=== PATIENT | female | born 1975 | race African-American/Black ===

== ENCOUNTER 2018-04-06 22:27 | Emergency (ER) | payer OTHER ==
[~2018-04-06] VITALS: Ht 160 cm; Wt 66.7 kg
[2018-04-06] MEDS ORDERED: IBUPROFEN600 MG ORAL (23:13)
[2018-04-06] MEDS ORDERED: ZITHROMAX250 MG ORAL (23:13)
--- NOTE | 2018-04-06 23:20 | Emergency Room Report ---
History of Present Illness General Chief Complaint: Earache Source: Patient Present Illness HPI Patient 42-year-old female presented after increased right-sided earache. Patient reports having prior history of tonsillitis which is recurrent. Patient reports having increased sore throat. She reports having finished a course of antibiotics. Patient was the noted to have a recent dental infection. She denies any fever. The patient denies any hearing loss or nausea vomiting.Patient denies any chest discomfort. She reports having prior history of arthritis. She states penicillin allergic. Allergies: Uncoded Allergies: PENNICILLIN (Allergy, Unknown, 04/06/18) Patient History Past Medical History: see triage record Last Menstrual Period: 2 weeks ago Now: No Reviewed Nursing Documentation: PMH: Agreed; PSxH: Agreed Nursing Documentation-PMH Hx Neurological Problems: Yes - embolization of the fibroid Review of Systems All Other Systems: negative except mentioned in HPI Physical Exam Vital Signs Date Time Temp Pulse Resp B/P (MAP) Pulse Ox O2 Delivery O2 Flow Rate FiO2 04/06/18 22:40 98.2 78 16 128/67 100 Room Air General Appearance: well appearing, no apparent distress, alert, GCS 15, non- toxic Head: normocephalic, atraumatic ENT: hearing grossly normal, normal voice, tonsillar swelling, tonsillar exudate Neck: full range of motion, supple Respiratory: normal inspection, no respiratory distress, speaking full sentences Cardiovascular #1: normal inspection Gastrointestinal: normal inspection Neurologic: normal inspection, alert, oriented x3, responsive, oil well logging engineer III-XII nml as tested, normal gait Psychiatric: mood/affect normal Skin: normal inspection, no rash Medical Decision Making Diagnostic Impression: Primary Impression: Tonsillitis ER Course Patient presented for ear pain. Differential diagnosis included was not limited to otitis media, malignant otitis externa, foreign body, cellulitis, mastoiditis, carotid dissection, myocardial infarction among others. The patient appears to have a right-sided tonsillitis. The patient was given prescription for ibuprofen as well as azithromycin. The patient is advised to follow-up with her primary care physician for recheck of neck discomfort and further imaging. Last Vital Signs Date Time Temp Pulse Resp B/P (MAP) Pulse Ox O2 Delivery O2 Flow Rate FiO2 04/06/18 22:40 98.2 78 16 128/67 100 Room Air Status: improved Disposition: HOME, SELF-CARE Condition: Stable Scripts Ibuprofen* (MOTRIN*) 600 Mg Tablet 600 MG ORAL Q8H PRN for For Pain, #30 TAB 0 Refills Prov: Reno Canseco MD 04/06/18 Azithromycin* (ZITHROMAX*) 250 Mg Tablet 250 MG ORAL DAILY, #6 TAB 0 Refills Take two tables once daily for 1 day, then one tablet once daily for 4 days. Prov: Reno Canseco MD 04/06/18 Patient Instructions: Tonsillitis Reno Canseco MD Apr 06, 2018 23:20
[2018-04-06 23:33] VITALS: BP 128/67
== END 2018-04-06 23:18 | disposition home or self-care (01) ==
LOC: EMR 23:02
DX: J03.90 Acute tonsillitis, unspecified (principal); Z88.0 Allergy status to penicillin
CPT/HCPCS: 99283

== ENCOUNTER 2018-05-24 18:55 | Emergency (ER) | payer OTHER ==
[~2018-05-24] VITALS: Ht 157.5 cm; Wt 64.9 kg
[~2018-05-24 18:55] MED LIST: IBUPROFEN600 MG ORAL; ZITHROMAX250 MG ORAL
--- NOTE | 2018-05-24 19:38 | NUR ---
ED Nurse Note: pt walked into ed c/o possible infection, pt states she had tooth infection since a year ago and has been off and on and had sinusitis and tonsilitis a month ago and noticed swelling around collarbone for two days. Pt reports she doesn't have any pain but wanted to r/o infection, denies fever but c/o fatigue. PT AA&ox4, gcs=15, skin warm and dry, resp even and unlabored, -n/v/d, ambulates w/ steady gait. Will cont monitor.
[2018-05-24 19:41] VITALS: BP 115/75
--- NOTE | 2018-05-24 20:56 | Emergency Room Report ---
History of Present Illness General Chief Complaint: Neck Pain Source: Patient Present Illness HPI 42 YO Female presents to the ED c/o swelling and tightness in the left side of her neck since yesterday. pt. states she also has been severely dehydrated and fatigued. Pt. recently had dental work done on left molar and is wondering if this could be some sort of infection. pt. denies fevers, chills, or tenderness/ pain to the molar or jaw area where dental work was done. Pt denies trauma or fall. Pt. finished course of amoxicillin. She reports she did sleep weird the night prior. pt denies significant pmhx other than fibroids with prolonged bleeding causing mild anemia. She reports some urinary frequency but denies dysuria, hematuria or urgency. Denies CP, Palpitations, LOC, AMS, dizziness, Changes in Vision, Sensation, paresthesias, or a sudden severe headache. Allergies: Uncoded Allergies: PENNICILLIN (Allergy, Unknown, 04/06/18) Patient History Past Medical History: see triage record Past Surgical History: none Pertinent Family History: none Last Menstrual Period: 05/22/18 Now: No Reviewed Nursing Documentation: PMH: Agreed; PSxH: Agreed Nursing Documentation-PMH Past Medical History: No History, Except For Hx Neurological Problems: Yes - embolization of the fibroid Review of Systems All Other Systems: negative except mentioned in HPI Physical Exam Vital Signs Date Time Temp Pulse Resp B/P (MAP) Pulse Ox O2 Delivery O2 Flow Rate FiO2 05/24/18 19:01 98.2 85 20 115/75 98 Room Air Sp02 EP Interpretation: reviewed, normal General Appearance: no apparent distress, alert, GCS 15, non-toxic Head: normocephalic, atraumatic Eyes: bilateral eye normal inspection, bilateral eye PERRL ENT: hearing grossly normal, normal voice, uvula midline, moist mucus membranes Neck: full range of motion, tender lateral - left Respiratory: chest non-tender, lungs clear, normal breath sounds, speaking full sentences Cardiovascular #1: regular rate, rhythm, normal capillary refill Gastrointestinal: normal bowel sounds, non tender, soft Genitourinary: normal inspection, no CVA tenderness Musculoskeletal: back normal, gait/station normal, normal range of motion, tender - left trapezius ttp, Neurologic: alert, oriented x3, responsive, motor strength/tone normal, sensory intact, speech normal, grossly normal Psychiatric: judgement/insight normal Skin: normal color, no rash, warm/dry, well hydrated Medical Decision Making PA Attestation Dr. Cruz is my supervising Physician whom patient management has been discussed with. Diagnostic Impression: Primary Impression: Neck muscle strain Qualified Codes: S16.1XXA - Strain of muscle, fascia and tendon at neck level , initial encounter ER Course 42 YO Female presents to the ED c/o swelling and tightness in the left side of her neck since yesterday. pt. states she also has been severely dehydrated and fatigued. Pt. recently had dental work done on left molar and is wondering if this could be some sort of infection. pt. denies fevers, chills, or tenderness/ pain to the molar or jaw area where dental work was done. Pt denies trauma or fall. Pt. finished course of amoxicillin. She reports she did sleep weird the night prior. pt denies significant pmhx other than fibroids with prolonged bleeding causing mild anemia. She reports some urinary frequency but denies dysuria, hematuria or urgency. Denies CP, Palpitations, LOC, AMS, dizziness, Changes in Vision, Sensation, paresthesias, or a sudden severe headache. Ddx considered but are not limited to Infection, neck muscle spasm/strain, goiter, UTI, anemia, electrolyte imbalance just to name a few. Vital signs: are WNL, pt. is afebrile H&PE are most consistent with neck muscle strain- no LAD, ttp primarily left trapezius. will r/o UTI ORDERS: -CBC, CMP, UA: unremarkable, electrolytes ok, no evidence of infeciton. ED INTERVENTIONS: -Robaxin PO -1 liter NS IV DISCHARGE: At this time pt. is stable for d/c to home. Will provide printed patient care instructions, and any necessary prescriptions. Care plan and follow up instructions have been discussed with the patient prior to discharge. Last Vital Signs Date Time Temp Pulse Resp B/P (MAP) Pulse Ox O2 Delivery O2 Flow Rate FiO2 05/24/18 19:41 98.2 87 16 115/75 100 Room Air Disposition: HOME, SELF-CARE Condition: Stable Scripts Naproxen* (NAPROXEN*) 500 Mg Tablet 500 MG ORAL TWICE A DAY for 5 Days, #10 TAB Prov: Mildred Arambula 05/24/18 Methocarbamol* (ROBAXIN-750*) 750 Mg Tablet 750 MG PO QID, #28 TAB 0 Refills Prov: Mildred Arambula 05/24/18 Referrals: [facility],REFERRING (PCP) Patient Instructions: Muscle Strain, [id number] Additional Instructions: Take medications as directed. Follow up with a Primary Care Provider in 3-5 days, even if your symptoms have resolved. --Please review list of primary care clinics, if you do not already have a primary care provider Return sooner to ED if new symptoms occur, or current symptoms become worse. Do not drink alcohol, drive, or operate heavy machinery while taking Robaxin ( Muscle Relaxers) as this may cause drowsiness. - Please note that this Emergency Department Report was dictated using [employer] server on call technology software, occasionally this can lead to erroneous entry secondary to interpretation by the dictation equipment. Mildred Arambula May 24, 2018 20:56
[2018-05-24 21:11] LABS: APPEARANCE,URINE CLEAR; BILIRUBIN, URINE NEGATIVE (NEGATIVE); COLOR,URINE PALE YELLOW; GLUCOSE, URINE (UA) NEGATIVE (NEGATIVE); KETONES,URINE NEGATIVE (NEGATIVE); LEUKOCYTE ESTERASE ,URINE NEGATIVE (NEGATIVE); NITRITE,URINE NEGATIVE (NEGATIVE); PH,URINE 8 (4.5-8.0); PROTEIN,URINE NEGATIVE (NEGATIVE); UROBILINOGEN,URINE NORMAL MG/DL (0.0-1.0)
[2018-05-24 21:16] LABS: EOSINOPHILS % (AUTO) 1.4 % (0.0-3.0); HEMATOCRIT 42.3 % (37.0-47.0); HEMOGLOBIN 13.8 G/DL (12.0-16.0); LYMPHOCYTES % (AUTO) 43.4 % (20.0-45.0); MEAN CORPUSCULAR VOLUME 87 FL (80-99); MONOCYTES % (AUTO) 10.3 % (1.0-10.0); PLATELET COUNT 255 K/UL (150-450); RED BLOOD COUNT 4.86 M/UL (4.20-5.40); WHITE BLOOD COUNT 5.5 K/UL (4.8-10.8)
[2018-05-24 21:29] LABS: ANION GAP 8 mmol/L (5-15); BLOOD UREA NITROGEN 16 mg/dL (7-18); CARBON DIOXIDE 28 MMOL/L (21-32); CHLORIDE 102 MMOL/L (98-107); CREATININE 1.2 MG/DL (0.55-1.30); POTASSIUM 3.7 MMOL/L (3.5-5.1); SODIUM 138 MMOL/L (136-145)
[2018-05-24 21:34] LABS: ALANINE AMINOTRANSFERASE 27 U/L (12-78); ALKALINE PHOSPHATASE 66 U/L (46-116); ASPARTATE AMINO TRANSFERASE 16 U/L (15-37); BILIRUBIN,TOTAL 0.3 MG/DL (0.2-1.0)
[2018-05-24] MEDS ORDERED: ROBAXIN-750750 MG PO (21:53)
[2018-05-24] MEDS ORDERED: NAPROXEN500 M2 ORAL (21:53)
[2018-05-24] MEDS ORDERED: Methocarbamol 750mg tab ORAL ONE (22:00)
[2018-05-24 22:10] VITALS: BP 119/78
--- NOTE | 2018-05-24 22:11 | NUR ---
ED Nurse Note: Pt discharge instruction provided w/ prescription, id band removed, pt education done via discussion and handout, pt verbalized understanding and agrees with plan, pt advised to follow up with pcp regarding pt's condition, pt advised to return to ed if s/s worsen or new s/s develop.
== END 2018-05-24 22:11 | disposition home or self-care (01) ==
LOC: EMR 19:15
DX: S16.1XXA Strain of muscle, fascia and tendon at neck level, initial encounter (principal); X58.XXXA Exposure to other specified factors, initial encounter; Y92.9 Unspecified place or not applicable; Z88.0 Allergy status to penicillin
CPT/HCPCS: 36415; 80053; 81003; 85025; 99283

== ENCOUNTER 2019-03-16 13:54 | Emergency (ER) | payer OTHER ==
[~2019-03-16] VITALS: Ht 162.6 cm; Wt 70.8 kg
[~2019-03-16 13:54] MED LIST changes: +NAPROXEN500 M2 ORAL; +ROBAXIN-750750 MG PO
[2019-03-16 13:59] VITALS: BP 108/66
--- NOTE | 2019-03-16 14:11 | Emergency Room Report ---
History of Present Illness General Chief Complaint: Pain Source: Patient (Jordi Altman MD) Present Illness HPI 43-year-old female initially to be evaluated at 2:10 PM, patient states he she has to use her cell phone and mixing picker tender a call Will reevaluate patient and obtain a history when she is available. (Jordi Altman MD) HPI 43-year-old female with history of uterine fibroids cholecystitis embolization the right side, and frequent UTI here complaining of 2-1/2 weeks of left sided flank pain without any radiation to the pubic area. Patient denies fever and chills, nausea vomiting. Reports that has been having intermittent shooting pain at the site of her embolization which occurred June 2017 and the pain has been going on for the past 2 months. Patient has an upcoming visit with cottonseed meat presser and also pending ultrasound to be done tomorrow. Denies hematuria , dysuria urinary frequency. Reports the last time that she had a urinary tract infection she ended on the hospital. Also reports that has been seen by an ear nose throat doctor and has been dealing with postnasal dripping and tonsillitis which has already been taking care of. Denies chest pain, shortness of breath, palpitation, and other associated symptoms. Has not taken any medication for symptom relief (Joe Keller) Allergies: Uncoded Allergies: PENNICILLIN (Allergy, Unknown, 04/06/18) Patient History Past Medical History: see triage record Last Menstrual Period: 03/01/2019 Now: No Reviewed Nursing Documentation: PMH: Agreed; PSxH: Agreed (Jordi Altman MD) Past Medical History: see triage record Past Surgical History: unable to obtain Pertinent Family History: none Now: No Immunizations: UTD Reviewed Nursing Documentation: PMH: Agreed; PSxH: Agreed (Joe Keller) Nursing Documentation-PMH Past Medical History: No History, Except For Hx Neurological Problems: Yes - embolization of the fibroid (Jordi Altman MD) Review of Systems All Other Systems: negative except mentioned in HPI (Jordi Altman MD) All Other Systems: negative except mentioned in HPI (Joe Keller) Physical Exam Vital Signs Date Time Temp Pulse Resp B/P (MAP) Pulse Ox O2 Delivery O2 Flow Rate FiO2 03/16/19 13:59 98.2 82 16 108/66 (80) 100 Room Air Sp02 EP Interpretation: reviewed, normal General Appearance: well appearing, no apparent distress, alert Head: normocephalic, atraumatic Eyes: bilateral eye PERRL, bilateral eye EOMI ENT: uvula midline, moist mucus membranes Neck: supple, thyroid normal, supple/symm/no masses Respiratory: lungs clear, no respiratory distress, no retraction, no accessory muscle use Cardiovascular #1: normal peripheral pulses, regular rate, rhythm, no edema, no gallop, no murmur Gastrointestinal: non tender, soft, no guarding, no rebound Musculoskeletal: normal inspection Neurologic: alert, oriented x3 Psychiatric: mood/affect normal Skin: no rash, warm/dry (Jordi Altman MD) Sp02 EP Interpretation: reviewed, normal General Appearance: no apparent distress, alert, GCS 15, non-toxic Head: normocephalic, atraumatic Eyes: bilateral eye normal inspection, bilateral eye PERRL ENT: hearing grossly normal, normal pharynx, no angioedema, normal voice Neck: full range of motion, supple/symm/no masses Respiratory: normal inspection, chest non-tender, lungs clear, normal breath sounds, no rhonchi, no respiratory distress, no wheezing Cardiovascular #1: regular rate, rhythm, no edema, no murmur Gastrointestinal: normal bowel sounds, non tender, soft, non-distended, no guarding, no rebound Genitourinary: normal inspection, no CVA tenderness Musculoskeletal: back normal, digits/nails normal, gait/station normal, normal range of motion, non-tender Neurologic: alert, oriented x3, responsive, motor strength/tone normal, sensory intact, speech normal Psychiatric: judgement/insight normal, memory normal, mood/affect normal, no suicidal/homicidal ideation Skin: no rash Lymphatic: no adenopathy (Joe Keller) Medical Decision Making PA Attestation Diagnosis and treatment plans were reviewed and discussed with my supervising physician Dr. Altman (Joe Keller) Diagnostic Impression: Primary Impression: Low back strain ER Course 43-year-old female with history of uterine fibroids cholecystitis embolization the right side, and frequent UTI here complaining of 2-1/2 weeks of left sided flank pain without any radiation to the pubic area. Patient denies fever and chills, nausea vomiting. Reports that has been having intermittent shooting pain at the site of her embolization which occurred June 2017 and the pain has been going on for the past 2 months. Patient has an upcoming visit with cottonseed meat presser and also pending ultrasound to be done tomorrow. Denies hematuria , dysuria urinary frequency. Reports the last time that she had a urinary tract infection she ended on the hospital. Also reports that has been seen by an ear nose throat doctor and has been dealing with postnasal dripping and tonsillitis which has already been taking care of. Denies chest pain, shortness of breath, palpitation, and other associated symptoms. Has not taken any medication for symptom relief Ddx considered but are not limited to: Lumbar spine sprain, strain, fracture, contusion, neuropathy, renal stone, pyelonephritis, adhesions post embolization Vital signs: are WNL, pt. is afebrile H&PE are most consistent with: Lumbar spine strain ORDERS: no Lumbar spine x-ray since there was no fall/injury, CBC, CMP, UA, urine test, lidocaine patch, Tylenol ER intervention: none DISCHARGE: At this time pt. is stable for d/c to home. Will provide printed patient care instructions, and any necessary prescriptions. Care plan and follow up instructions have been discussed with the patient prior to discharge. Patient later discloses that she has had pruritus secondary to dye injection in the past. I explained to her the CT scan without IV contrast is not going to be as accurate since the patient is getting an ultrasound done tomorrow patient to have ultrasound done and follow-up with your primary care provider. At this time no further emergent action is needed as patient is stable with stable vital signs and no signs of urinary tract infection noted. The trace of blood stone versus start of patient's menses. Patient agrees with the above treatment (Joe Keller) Last Vital Signs Date Time Temp Pulse Resp B/P (MAP) Pulse Ox O2 Delivery O2 Flow Rate FiO2 03/16/19 13:59 98.2 82 16 108/66 (80) 100 Room Air (Jordi Altman MD) Disposition: HOME, SELF-CARE Condition: Stable Scripts Acetaminophen* (ACETAMINOPHEN 325MG TABLET*) 325 Mg Tablet 650 MG ORAL Q6H PRN for For Pain, #30 TAB Prov: Joe Keller 03/16/19 Lidocaine Patch* (Lidoderm Patch*) 1 Each Adh..patch 1 PATCH TOPIC DAILY, #7 PATCH 0 Refills Patch(es) may remain in place for up to 12 hours in any 24-hour period. Prov: Joe Keller 03/16/19 Patient Instructions: Low Back Strain With [facility] Additional Instructions: Follow-up with your primary doctor and have the ultrasound of the abdomen pelvis done to rule out postoperative adhesions as well as annual fibroids as well as renal stone. No urinary tract infection noted. You are not tender at the site of pain. No fever chills or nausea vomiting noted. Take medication as directed. Jordi Altman MD Mar 16, 2019 14:11 Joe Keller Mar 16, 2019 15:52
--- NOTE | 2019-03-16 14:20 | NUR ---
ED Nurse Note: PT FROM HOME CAME IN DUE TO RIGHT FLANKPAIN X 2 WEEKS. DENIES ANY PAIN UPON ARRIVAL. NO URINARY FREQUENCY OR DYSURIA. AAO X4, AMBULATORY.
[2019-03-16] MEDS ORDERED: Omnipaque-300 100ml vial INJ PRN (14:30)
--- NOTE | 2019-03-16 14:51 | NUR ---
ED Nurse Note: COLLECTED BLOOD/URINE THEN SENT.
[2019-03-16 15:18] LABS: BASOPHILS % (AUTO) 1.2 % (0.0-2.0); EOSINOPHILS % (AUTO) 0.8 % (0.0-3.0); HEMATOCRIT 37.3 % (37.0-47.0); HEMOGLOBIN 12.3 G/DL (12.0-16.0); MEAN CORPUSCULAR VOLUME 86 FL (80-99); MONOCYTES % (AUTO) 10.7 % (1.0-10.0); NEUTROPHILS % (AUTO) 45.4 % (45.0-75.0); PLATELET COUNT 262 K/UL (150-450); RED BLOOD COUNT 4.36 M/UL (4.20-5.40); RED CELL DISTRIBUTION WIDTH 11.3 % (11.6-14.8); WHITE BLOOD COUNT 5.6 K/UL (4.8-10.8)
[2019-03-16 15:20] LABS: APPEARANCE,URINE CLEAR; BILIRUBIN, URINE NEGATIVE (NEGATIVE); COLOR,URINE PALE YELLOW; GLUCOSE, URINE (UA) NEGATIVE (NEGATIVE); KETONES,URINE NEGATIVE (NEGATIVE); LEUKOCYTE ESTERASE ,URINE NEGATIVE (NEGATIVE); NITRITE,URINE NEGATIVE (NEGATIVE); PH,URINE 8 (4.5-8.0); PROTEIN,URINE 1+ (NEGATIVE); UROBILINOGEN,URINE NORMAL MG/DL (0.0-1.0)
[2019-03-16 15:42] LABS: ANION GAP 9 mmol/L (5-15); BLOOD UREA NITROGEN 9 mg/dL (7-18); CARBON DIOXIDE 27 MMOL/L (21-32); CHLORIDE 107 MMOL/L (98-107); CREATININE 0.8 MG/DL (0.55-1.30); POTASSIUM 4.3 MMOL/L (3.5-5.1); SODIUM 143 MMOL/L (136-145)
[2019-03-16 15:46] LABS: ALANINE AMINOTRANSFERASE 21 U/L (12-78); ALBUMIN 3.7 G/DL (3.4-5.0); ALBUMIN/GLOBULIN RATIO 0.9 (1.0-2.7); ALKALINE PHOSPHATASE 57 U/L (46-116); ASPARTATE AMINO TRANSFERASE 17 U/L (15-37); BILIRUBIN,TOTAL 0.4 MG/DL (0.2-1.0)
[2019-03-16] MEDS ORDERED: ACETAMINOPHEN325 M1 ORAL (15:53)
[2019-03-16] MEDS ORDERED: LIDODERM700 M1 TOPIC (15:53)
--- NOTE | 2019-03-16 16:07 | NUR ---
ER DISCHARGE NOTE: Patient is cleared to be discharged per ERMD, pt is aox4, on room air, with stable vital signs. pt was given dc and prescription instructions, pt was able to verbalize understanding, pt id band and iv site removed without complications. pt is able to ambulate with steady gait. pt took all belongings.
== END 2019-03-16 16:07 | disposition home or self-care (01) ==
LOC: EMR 14:41
DX: S39.012A Strain of muscle, fascia and tendon of lower back, initial encounter (principal); Z88.0 Allergy status to penicillin; Z87.440 Personal history of urinary (tract) infections; Z32.02 Encounter for pregnancy test, result negative; X58.XXXA Exposure to other specified factors, initial encounter; Y92.9 Unspecified place or not applicable
CPT/HCPCS: 36415; 80053; 81001; 81025; 85025; Z7502; 99284

== ENCOUNTER 2019-04-05 16:12 | Emergency (ER) | payer OTHER ==
[~2019-04-05] VITALS: Ht 160 cm; Wt 71.7 kg
[~2019-04-05 16:12] MED LIST changes: +ACETAMINOPHEN325 M1 ORAL; +LIDODERM700 M1 TOPIC
[2019-04-05 16:16] VITALS: BP 101/45
--- NOTE | 2019-04-05 16:26 | NUR ---
ED Nurse Note: PT WALKED IN DUE TO SUDDEN SHARP RLQ ABD PAIN X 20MINS AROUND 12NOON TODAY. REPORTS SHE IS EXPERIENCING INTERMIITENT RLQ PAIN. DENIES N/V. AAO X4 AND AMBULATORY, CALM AND COOPERATIVE.
[2019-04-05] MEDS ORDERED: Omnipaque-300 100ml vial INJ PRN (16:45)
[2019-04-05] MEDS: DiphenhydrAMINE 50mg/ml Inj IVP ONE ×2 (16:52→18:23)
[2019-04-05 17:27] LABS: EOSINOPHILS % (AUTO) 0.9 % (0.0-3.0); HEMATOCRIT 38.9 % (37.0-47.0); HEMOGLOBIN 13.4 G/DL (12.0-16.0); MEAN CORPUSCULAR VOLUME 82 FL (80-99); MONOCYTES % (AUTO) 10.3 % (1.0-10.0); NEUTROPHILS % (AUTO) 44.8 % (45.0-75.0); PLATELET COUNT 290 K/UL (150-450); RED BLOOD COUNT 4.73 M/UL (4.20-5.40); RED CELL DISTRIBUTION WIDTH 10.1 % (11.6-14.8); WHITE BLOOD COUNT 5.7 K/UL (4.8-10.8)
[2019-04-05 17:47] LABS: ANION GAP 1 mmol/L (5-15); BLOOD UREA NITROGEN 17 mg/dL (7-18); CALCIUM 9.2 MG/DL (8.5-10.1); CARBON DIOXIDE 32 MMOL/L (21-32); CHLORIDE 101 MMOL/L (98-107); CREATININE 1.2 MG/DL (0.55-1.30); SODIUM 134 MMOL/L (136-145)
[2019-04-05 17:52] LABS: ALANINE AMINOTRANSFERASE 29 U/L (12-78); ALKALINE PHOSPHATASE 59 U/L (46-116); ASPARTATE AMINO TRANSFERASE 16 U/L (15-37); BILIRUBIN,TOTAL 0.3 MG/DL (0.2-1.0)
[2019-04-05 18:06] LABS: APPEARANCE,URINE CLOUDY; BILIRUBIN, URINE NEGATIVE (NEGATIVE); COLOR,URINE PALE YELLOW; GLUCOSE, URINE (UA) NEGATIVE (NEGATIVE); KETONES,URINE NEGATIVE (NEGATIVE); LEUKOCYTE ESTERASE ,URINE NEGATIVE (NEGATIVE); NITRITE,URINE NEGATIVE (NEGATIVE); PH,URINE 7 (4.5-8.0); PROTEIN,URINE NEGATIVE (NEGATIVE); UROBILINOGEN,URINE NORMAL MG/DL (0.0-1.0)
[2019-04-05 18:10] VITALS: BP 118/65
--- NOTE | 2019-04-05 18:25 | NUR ---
ED Nurse Note: PT TAKEN TO CT AND STABLE.
--- NOTE | 2019-04-05 18:38 | NUR ---
ED Nurse Note: PT CAME BACK FROM CT AND STABLE.
--- NOTE | 2019-04-05 19:07 | Diagnostic Imaging Report ---
EXAM: CT Abdomen and Pelvis With Intravenous Contrast CLINICAL HISTORY: PAIN TECHNIQUE: Axial computed tomography images of the abdomen and pelvis with intravenous contrast. CTDI is 14.5 mGy and DLP is 780.3 mGy-cm. One or more of the following dose reduction techniques were used: automated exposure control, adjustment of the mA and or kV according to patient size, use of iterative reconstruction technique. Coronal and sagittal reformatted images were created and reviewed. COMPARISON: No relevant prior studies available. FINDINGS: Lung bases: Unremarkable. No mass. No consolidation. ABDOMEN: Liver: Unremarkable. No mass. Gallbladder and bile ducts: Unremarkable. No calcified stones. No ductal dilation. Pancreas: Unremarkable. No mass. No ductal dilation. Spleen: Unremarkable. No splenomegaly. Adrenals: Unremarkable. No mass. Kidneys and ureters: Unremarkable. No solid mass. No hydronephrosis. Stomach and bowel: There is a moderately prominent colonic stool burden. No focal colonic inflammatory changes are seen. Small bowel caliber is normal. The stomach is mostly contracted. No obstruction. No mucosal thickening. PELVIS: Appendix: No findings to suggest acute appendicitis. Bladder: Urinary bladder wall thickening, nonspecific and possibly related to underdistention. Reproductive: Heterogeneity of the uterus which is likely related to physiologic changes. Rim-enhancing cystic structure within the left adnexa ovary which is likely a corpus luteal cyst measuring up to 1.8 cm length with involuting margins. ABDOMEN and PELVIS: Intraperitoneal space: Slight free fluid which may be physiologic. No free air. No significant fluid collection. Bones joints: No acute fracture. No dislocation. Soft tissues: Unremarkable. Vasculature: Unremarkable. No abdominal aortic aneurysm. Lymph nodes: Unremarkable. No enlarged lymph nodes. IMPRESSION: 1. Urinary bladder wall thickening, nonspecific and possibly related to underdistention or cystitis. No evidence for obstructive uropathy. 2. Enhancing structure in the left ovary which likely represents an involuting functional corpus luteal cyst. Mild pelvic free fluid is present which is favored physiologic.
--- NOTE | 2019-04-05 19:10 | NUR ---
HAND-OFF: Report given to DESTINEY IVEY.
--- NOTE | 2019-04-05 19:11 | NUR ---
ED Nurse Note: Received report from Iqra IVEY. Pt alert and oriented, no SOB. VSS.
--- NOTE | 2019-04-05 19:18 | Emergency Room Report ---
History of Present Illness General Chief Complaint: Abdominal Pain Source: Patient Present Illness HPI 43-year-old female with no significant past medical history here complaining of 1 day of right-sided abdominal pain and flank pain and is worried that is her appendix. Denies diffuse abdominal pain, denies any pain at this time. However reports the pain started being sharp yesterday and was doing a 5 out of 10. Denies urinary frequency and urgency. Denies nausea and vomiting, fever and chills. Has not taken medication for symptom relief. Patient reports he recently had ultrasound of kidneys done and there was no stone or signs of infection. Patient was previously seen at [facility] few weeks ago for flank pain possible infection of kidney however did not want to do CT scan due to having an allergic reaction in form of pruritus to IV contrast. It was decided last time not to do the CT scans patient was going to do ultrasound of the kidneys a day after her visit at [facility]. Also patient was not symptomatic and no CVA tenderness was noted at the time of last visit and no CVA tenderness is noted at this time. Patient reports that she has history of uterine fibroids which was removed 2 years ago and does admit to having postoperative adhesions. Denies irregular uterine bleeding at this time. Allergies: Coded Allergies: PENICILLINS (Unverified Allergy, Unknown, 04/05/19) Uncoded Allergies: PENNICILLIN (Allergy, Unknown, 04/06/18) Patient History Past Medical History: see triage record Past Surgical History: unable to obtain Pertinent Family History: none Last Menstrual Period: 03/24/19 Now: No Immunizations: UTD Reviewed Nursing Documentation: PMH: Agreed; PSxH: Agreed Nursing Documentation-PMH Past Medical History: No History, Except For Hx Neurological Problems: Yes - embolization of the fibroid Review of Systems All Other Systems: negative except mentioned in HPI Physical Exam Vital Signs Date Time Temp Pulse Resp B/P (MAP) Pulse Ox O2 Delivery O2 Flow Rate FiO2 04/05/19 16:16 98.4 80 18 101/45 100 Room Air Sp02 EP Interpretation: reviewed, normal General Appearance: no apparent distress, alert, GCS 15, non-toxic Head: normocephalic, atraumatic Eyes: bilateral eye normal inspection, bilateral eye PERRL ENT: hearing grossly normal, normal pharynx, no angioedema, normal voice Neck: full range of motion, supple/symm/no masses Respiratory: chest non-tender, lungs clear, normal breath sounds, no rhonchi, no wheezing, speaking full sentences Cardiovascular #1: regular rate, rhythm, no edema, no murmur, normal capillary refill Gastrointestinal: normal bowel sounds, non tender, soft, no mass, no organomegaly, no peritonitis, no bruit, non-distended, no guarding, no hernia Rectal: deferred Genitourinary: normal inspection, no CVA tenderness Musculoskeletal: back normal, digits/nails normal, gait/station normal, non- tender, no calf tenderness Neurologic: alert, oriented x3, responsive, motor strength/tone normal, sensory intact, speech normal Psychiatric: normal inspection, judgement/insight normal Skin: no rash Lymphatic: normal inspection Medical Decision Making PA Attestation All diagnoses and treatment plans were reviewed and discussed with my supervising physician Dr. Harden Diagnostic Impression: Primary Impression: UTI (urinary tract infection) Additional Impression: Ovarian cyst ER Course 43-year-old female with no significant past medical history here complaining of 1 day of right-sided abdominal pain and flank pain and is worried that is her appendix. Denies diffuse abdominal pain, denies any pain at this time. However reports the pain started being sharp yesterday and was doing a 5 out of 10. Denies urinary frequency and urgency. Denies nausea and vomiting, fever and chills. Has not taken medication for symptom relief. Patient reports he recently had ultrasound of kidneys done and there was no stone or signs of infection. Patient was previously seen at [facility] few weeks ago for flank pain possible infection of kidney however did not want to do CT scan due to having an allergic reaction in form of pruritus to IV contrast. It was decided last time not to do the CT scans patient was going to do ultrasound of the kidneys a day after her visit at [facility]. Also patient was not symptomatic and no CVA tenderness was noted at the time of last visit and no CVA tenderness is noted at this time. Patient reports that she has history of uterine fibroids which was removed 2 years ago and does admit to having postoperative adhesions. Denies irregular uterine bleeding at this time. Ddx considered but are not limited to: UTI, pyelonephritis, urinary incontinence , ovarian cyst, uterine fibroids, ruptured ovarian cyst, appendicitis Vital signs: are WNL, pt. is afebrile H&PE are most consistent with: UTI, non-ruptured ovarian cyst ORDERS: CBC, CMP, UA, urine test, abdominal pelvis CT scan with contrast ED INTERVENTIONS NS bolus, Benadryl as patient consented to take Benadryl and have the dye injected for contrast for CT scan of abdomen as patient denies having any history of anaphylaxis type reaction. Patient fully awake and aware upon making the decision to take Benadryl prior to getting the CT scan done. Patient appears in no apparent distress and no rash noted no signs of anaphylaxis or shortness of breath noted after administration of Benadryl as well as CT scan were done. No more Benadryl can be given at this time as patient is planning to drive herself home. Patient stable at time of discharge DISCHARGE: At this time pt. is stable for d/c to home. Will provide printed patient care instructions, and any necessary prescriptions. Care plan and follow up instructions have been discussed with the patient prior to discharge. I advised the patient to return to emergency room with worsening symptoms have her follow with primary care provider for referral to highway patrol officer regarding ovarian cyst and also further investigation of her abdominal pain as it can also be secondary to straining a muscle. Patient agrees to follow-up with primary care as well as taking Tylenol ibuprofen for symptom relief. CT/MRI/US Diagnostic Results CT/MRI/US Diagnostic Results : Imaging Test Ordered: CT abdomen pelvis with contrast Impression Ovarian cyst noted in the left side Last Vital Signs Date Time Temp Pulse Resp B/P (MAP) Pulse Ox O2 Delivery O2 Flow Rate FiO2 04/05/19 18:10 98.6 74 18 118/65 99 Room Air Disposition: HOME, SELF-CARE Condition: Stable Scripts Nitrofurantoin Monohyd/M-Cryst* (MACROBID 100 MG*) 100 Mg Capsule 100 MG ORAL EVERY 12 HOURS for 7 Days, #14 CAP Prov: Joe Keller 04/05/19 Referrals: [facility],REFERRING (PCP) Patient Instructions: Ovarian Cyst, [id number], Urinary Tract Infection, Easy -to-Read Additional Instructions: Take medication as directed, follow-up with your primary care provider regarding ovarian cyst for referral to SNOW[employer]ARDING IN[employer]CTOR. Continue taking Benadryl for symptom relief after leaving and I cannot give any Benadryl right now due to to try. If any anaphylaxis, difficulty breathing withdrawing return to the emergency room Joe Keller Apr 05, 2019 19:18
[2019-04-05] MEDS ORDERED: NITROFURANTOIN100 M2 ORAL (19:19)
[2019-04-05 19:35] VITALS: BP 115/72
--- NOTE | 2019-04-05 19:35 | NUR ---
ED Nurse Note: Pt cleared by ERMD for discharge. DC instructions/prescription was given and explained to pt and verbalized understanding of teachings. All medical deviecs such as ID band and IV line removed. Pt is AAO x4, ambulatory and left with all personal belongings.
== END 2019-04-05 19:35 | disposition home or self-care (01) ==
LOC: EMR 17:11
DX: N39.0 Urinary tract infection, site not specified (principal); N83.201 Unspecified ovarian cyst, right side; Z88.0 Allergy status to penicillin
CPT/HCPCS: 36415; 74177; 80053; 81003; 81025; 85025; 87086; 96361; 96374; J1200; Q9967; Z7502; 99284; J7030

== ENCOUNTER 2019-05-02 19:51 | Emergency (ER) | payer OTHER ==
[~2019-05-02] VITALS: Ht 160 cm; Wt 71.7 kg
[~2019-05-02 19:51] MED LIST changes: +NITROFURANTOIN100 M2 ORAL
[2019-05-02 19:54] VITALS: BP 120/70
--- NOTE | 2019-05-02 20:02 | NUR ---
ED Nurse Note: Patient walked into ED from home c/o sorethroat for 2days. patient also c/o left sided flank pain, reports hx of uti. patient is alert awake x4 ambulatory breathing unlabored and even, speaking in full sentences.
--- NOTE | 2019-05-02 20:46 | Emergency Room Report ---
History of Present Illness General Chief Complaint: Sore Throat Source: Patient Present Illness HPI 43 YO Female two complaints : 1) 3/[address] with significant tonsillar swelling. Pain primarily on the right side. She denies changes in her voice. She reports subjective fevers and chills x 2 days. pt. reports recurrent tonsillitis in the past and recently was seen by an ENT specialist. PT. denies cough, nasal congestion, rhinorrhea, CORRAL or neck pain/stiffness. Pt. denies difficulty with swallowing, but reports pain is exacerbated when doing so. Pt. has been taking Tylenol PO without relief. Pt. reports moderate PND regularly. Denies allergies. 2) Left low back pain that is cramping in nature. Pain is not currently present but was all last night and in the early am. She denies trauma or fall. Denies recent strenuous activities. She reports recent UTI just finished course of Macrobid wants to Check urine to make sure its resolved. Pain worsened last night when urinating. left flank area. Denies dysuria, frequency, hematuria or urgency. She states she initially thought pain was due to holding her urine in the middle of the night, but wants to have it checked. Allergies: Coded Allergies: PENICILLINS (Unverified Allergy, Unknown, 04/05/19) Uncoded Allergies: PENNICILLIN (Allergy, Unknown, 04/06/18) Patient History Past Medical History: see triage record Past Surgical History: none Pertinent Family History: none Now: No Reviewed Nursing Documentation: PMH: Agreed; PSxH: Agreed Nursing Documentation-PM Past Medical History: No Stated History Hx Neurological Problems: Yes - embolization of the fibroid Review of Systems All Other Systems: negative except mentioned in HPI Physical Exam Vital Signs Date Time Temp Pulse Resp B/P (MAP) Pulse Ox O2 Delivery O2 Flow Rate FiO2 05/02/19 19:54 98.2 68 16 120/70 98 Room Air Sp02 EP Interpretation: reviewed, normal General Appearance: no apparent distress, alert, GCS 15, non-toxic Head: normocephalic, atraumatic Eyes: bilateral eye normal inspection, bilateral eye PERRL ENT: hearing grossly normal, normal voice, TMs + canals normal, uvula midline, moist mucus membranes, nasal congestion, tonsillar swelling, pharyngeal erythema Neck: full range of motion, no meningismus, no bony tend Respiratory: lungs clear, normal breath sounds, speaking full sentences Cardiovascular #1: regular rate, rhythm Gastrointestinal: non tender - not reproducible, soft Genitourinary: normal inspection, no CVA tenderness Musculoskeletal: back normal, normal range of motion, gait/station normal, non- tender Neurologic: alert, motor strength/tone normal, oriented x3, sensory intact, responsive, speech normal Psychiatric: judgement/insight normal Skin: normal color, normal inspection Lymphatic: no adenopathy Medical Decision Making PA Attestation Dr. Perales is my supervising Physician whom patient management has been discussed with. Diagnostic Impression: Primary Impression: Tonsillitis Additional Impression: Muscle spasm of back ER Course 43 YO Female two complaints : 1) 3/[address] with significant tonsillar swelling. Pain primarily on the right side. She denies changes in her voice. She reports subjective fevers and chills x 2 days. pt. reports recurrent tonsillitis in the past and recently was seen by an ENT specialist. PT. denies cough, nasal congestion, rhinorrhea, CORRAL or neck pain/stiffness. Pt. denies difficulty with swallowing, but reports pain is exacerbated when doing so. Pt. has been taking Tylenol PO without relief. Pt. reports moderate PND regularly. Denies allergies. 2) Left low back pain that is cramping in nature. Pain is not currently present but was all last night and in the early am. She denies trauma or fall. Denies recent strenuous activities. She reports recent UTI just finished course of Macrobid wants to Check urine to make sure its resolved. Pain worsened last night when urinating. left flank area. Denies dysuria, frequency, hematuria or urgency. She states she initially thought pain was due to holding her urine in the middle of the night, but wants to have it checked. Ddx considered but are not limited to: pharyngitis, strep, [employer] SUPER[employer]OR, ludwigs angina, URI , UTI, Renal stone, Muscle spasm, PMS cramps. Vital signs: are WNL, pt. is afebrile H&PE are most consistent with: pharyngitis presumed strep. ORDERS: -UA: WNL ED INTERVENTIONS: none required at this time. DISCHARGE: At this time pt. is stable for d/c to home. Will provide printed patient care instructions, and any necessary prescriptions. Care plan and follow up instructions have been discussed with the patient prior to discharge. Labs Test 05/02/19 20:40 Urine Color Pale yellow Urine Appearance Clear Urine pH 8 (4.5-8.0) Urine Specific [place] 1.010 (1.005-1.035) Urine Protein Negative (NEGATIVE) Urine Glucose (UA) Negative (NEGATIVE) Urine Ketones Negative (NEGATIVE) Urine Blood 1+ (NEGATIVE) Urine Nitrite Negative (NEGATIVE) Urine Bilirubin Negative (NEGATIVE) Urine Urobilinogen Normal MG/DL (0.0-1.0) Urine Leukocyte Esterase Negative (NEGATIVE) Urine RBC 0-2 /HPF (0 - 2) Urine WBC 0 /HPF (0 - 2) Urine Squamous Epithelial Cells Few /LPF (NONE/OCC) Urine Bacteria None /HPF (NONE) Last Vital Signs Date Time Temp Pulse Resp B/P (MAP) Pulse Ox O2 Delivery O2 Flow Rate FiO2 05/02/19 19:54 98.2 68 16 120/70 (87) 98 Room Air Disposition: HOME, SELF-CARE Condition: Stable Patient Instructions: Sore Throat, Tonsillitis Additional Instructions: Take medications as directed. Do not drink alcohol, drive, or operate heavy machinery while taking Robaxin ( Muscle Relaxers) as this may cause drowsiness. Follow up with a Primary Care Provider in 3-5 days, even if your symptoms have resolved. recommend ENT specialist evaluation for recurrent symptoms Return sooner to ED if new symptoms occur, or current symptoms become worse. - Please note that this Emergency Department Report was dictated using [employer] technology software, occasionally this can lead to erroneous entry secondary to interpretation by the dictation equipment. Mildred Arambula May 02, 2019 20:46
--- NOTE | 2019-05-02 20:48 | NUR ---
ED Nurse Note: urine sent to lab
[2019-05-02 20:58] LABS: APPEARANCE,URINE CLEAR; BILIRUBIN, URINE NEGATIVE (NEGATIVE); COLOR,URINE PALE YELLOW; GLUCOSE, URINE (UA) NEGATIVE (NEGATIVE); KETONES,URINE NEGATIVE (NEGATIVE); LEUKOCYTE ESTERASE ,URINE NEGATIVE (NEGATIVE); NITRITE,URINE NEGATIVE (NEGATIVE); PH,URINE 8 (4.5-8.0); PROTEIN,URINE NEGATIVE (NEGATIVE); UROBILINOGEN,URINE NORMAL MG/DL (0.0-1.0)
[2019-05-02] MEDS ORDERED: ZYRTEC10 MG ORAL (21:37)
[2019-05-02] MEDS ORDERED: COLACE100 MG ORAL (21:37)
[2019-05-02] MEDS ORDERED: ZITHROMAX250 MG ORAL (21:37)
[2019-05-02] MEDS ORDERED: ROBAXIN-750750 MG PO (21:37)
[2019-05-02 21:54] VITALS: BP 120/70
--- NOTE | 2019-05-02 21:55 | NUR ---
ER DISCHARGE NOTE: Patient is cleared to be discharged per MISHA BEY, pt is aox4, on room air, with stable vital signs. pt was given dc and prescription instructions, pt was able to verbalize understanding, pt id band and removed without complications. pt is able to ambulate with steady gait. pt took all belongings.
== END 2019-05-02 21:54 | disposition home or self-care (01) ==
LOC: EMR 21:50
DX: J03.91 Acute recurrent tonsillitis, unspecified (principal); M62.830 Muscle spasm of back; Z88.0 Allergy status to penicillin
CPT/HCPCS: 81003; Z7502; 99282